=== PATIENT | male | born 1960 | race Caucasian/White ===

== ENCOUNTER 2016-04-20 08:40 | Day surgery (SDC) | payer MEDICARE ==
[~2016-04-20] VITALS: Ht 182.9 cm; Wt 96.6 kg
[~2016-04-20 08:40] MED LIST: ALPR0.5T8 PO; ARIP10TA14 PO; GABA-502 PO; HYDR-3825 PO; ZYL100 PO
[2016-04-20] MEDS ORDERED: Iohexol 240 mg/mL 10 mL Inj ONE (08:41)
[2016-04-20 09:06] VITALS: BP 140/87; PULSE 80; RESP 14; O2SAT 96
[2016-04-20 09:38] VITALS: BP 135/103; PULSE 73; RESP 16; O2SAT 97
--- NOTE | 2016-04-20 15:23 | PCM.PROC ---
Procedure Note Date of Service: Apr 20, 2016 Pre Procedure Diagnosis: PROCEDURE: Diagnostic medial branch block of the Lumbar facet joints RIGHT L4-L5 , L5-S1. 2nd injection. 2% lidocaine PRE-PROCEDURE DIAGNOSIS: Lumbar spondylosis POST-PROCEDURE DIAGNOSIS: same INDICATION: 55-year-old patient with greater than 3 months of moderate to severe axial LBP, refractory to conservative management, including NSAIDS and PT. PERFORMED BY: Shaun Richardson MD DESCRIPTION OF PROCEDURE: Patient was met in the holding area. Consent was signed, site was confirmed and all questions were answered. Patient was taken to the procedure suite and placed prone on the procedure table. At each level, the vertebral endplates were used to optimize fluoroscopic position. Local anesthesia was attained with 1% lidocaine. The image intensifier was then rotated ipsilaterally to optimize the "Medardo dog" position. A 25-gauge Quincke spinal needle was advanced towards the junction of the SAP and transverse process at each level. Proper positioning was confirmed in both the AP and lateral views. 0.5 cc of radiopaque contrast was injected to confirm proper position followed by an injection underlying fluoroscopy to minimize the chance of inadvertent vascular uptake. For the L5-L4laoal joint the final position was the junction of the sacral ala and the S1 superior articulating process After proper positioning was confirmed, 0.5 cc of local anesthetic was injected at each level. ANESTHESIA: Local. EBL: None. No Blood Products Used COMPLICATIONS: None SPECIMENS: None POST-PROCEDURE DISPOSITION: Patient tolerated the procedure well and was returned to the holding area in stable condition. They were discharged home when all discharge criteria were met. DISCHARGE MEDICATIONS: None FOLLOW UP: Pain diary, Return to discuss Shaun Richardson MD * Pain Management * Anesthesiology .ED: Y: Patient given care and follow up instructions Shaun Richardson MD Apr 20, 2016 15:23
== END 2016-04-20 23:59 | disposition home or self-care (01) ==
LOC: END 08:40
PROVIDERS: ATTEND Anesthesiology Pain Medicine
DX: M47.816 Spondylosis without myelopathy or radiculopathy, lumbar region (principal); M54.5 Low back pain; M54.2 Cervicalgia; F32.9 Major depressive disorder, single episode, unspecified; F43.10 Post-traumatic stress disorder, unspecified; F10.21 Alcohol dependence, in remission; Z79.891 Long term (current) use of opiate analgesic